=== PATIENT | female | born 1995 | race Caucasian/White ===

== ENCOUNTER 2016-12-30 03:54 | Emergency (ER) | payer OTHER | END 2016-12-30 05:55 | disposition home or self-care (01) | LOC: ER1 03:54 | DX: T65.811A Toxic effect of latex, accidental (unintentional), initial encounter (principal); L50.0 Allergic urticaria; F17.210 Nicotine dependence, cigarettes, uncomplicated; Z88.2 Allergy status to sulfonamides; Z88.0 Allergy status to penicillin; Z88.5 Allergy status to narcotic agent; Z88.8 Allergy status to other drugs, medicaments and biological substances | CPT/HCPCS: 96372; 99282; J1100; Q0163 ==

== ENCOUNTER 2017-01-02 02:06 | Emergency (ER) | payer OTHER | END 2017-01-02 05:00 | disposition home or self-care (01) | LOC: ER1 02:06 | DX: T78.40XA Allergy, unspecified, initial encounter (principal); F17.210 Nicotine dependence, cigarettes, uncomplicated; Z91.040 Latex allergy status; Z88.0 Allergy status to penicillin; Z88.2 Allergy status to sulfonamides; Z88.8 Allergy status to other drugs, medicaments and biological substances; X58.XXXA Exposure to other specified factors, initial encounter | CPT/HCPCS: 99282 ==

== ENCOUNTER 2020-09-13 16:31 | Emergency (ER) | payer OTHER ==
[~2020-09-13 16:31] MED LIST: IBUPROFEN600 MG PO
[2020-09-13 19:59] LABS: HEMOGLOBIN 14.5 gm/dl (12.3-15.3); RED BLOOD COUNT 4.82 M/UL (4.00-5.10); WHITE BLOOD COUNT 5.6 K/UL (4.5-11.0)
[2020-09-13 20:16] LABS: BUN/CREATININE RATIO 10 (0-10)
[2020-09-16 06:10] LABS: CHLAMYDIA TRACHOMATIS, NAA Negative (Negative); NEISSERIA GONORRHOEAE, NAA Negative (Negative)
== END 2020-09-13 22:29 | disposition home or self-care (01) ==
LOC: ER1 16:31
PROVIDERS: Family Medicine
DX: R10.32 Left lower quadrant pain (principal); R11.2 Nausea with vomiting, unspecified; R19.7 Diarrhea, unspecified; N89.8 Other specified noninflammatory disorders of vagina; F17.210 Nicotine dependence, cigarettes, uncomplicated; Z89.511 Acquired absence of right leg below knee; Z20.822 Contact with and (suspected) exposure to COVID-19; Z88.0 Allergy status to penicillin; Z88.1 Allergy status to other antibiotic agents; Z88.8 Allergy status to other drugs, medicaments and biological substances
CPT/HCPCS: 36415; 80053; 81001; 83605; 83690; 84703; 85025; 99284; Q9967; U0002